=== PATIENT | female | born 1985 | race Hispanic/Latino ===

== ENCOUNTER 2018-01-05 15:52 | Emergency (ER) | payer SELFPAY ==
[~2018-01-05] VITALS: Ht 160 cm; Wt 117.9 kg
[2018-01-05] MEDS ORDERED: HYDRALAZINE HCL10 MG PO (16:00)
== END 2018-01-05 16:09 | disposition home or self-care (01) ==
LOC: ED 15:52
DX: H92.01 Otalgia, right ear (principal)